=== PATIENT | male | born 1970 | race African-American/Black ===

== ENCOUNTER 2018-01-11 23:47 | Emergency (ER) | payer MEDICAID ==
[~2018-01-11] VITALS: Ht 172.7 cm; Wt 86.3 kg
[2018-01-12] MEDS ORDERED: KETOROLAC 60MG/2ML VIAL IM ONE (04:45)
[2018-01-12] MEDS ORDERED: PREDNISONE 20MG TABLET PO ONE (04:45)
[2018-01-12 06:25] VITALS: BP 132/91
== END 2018-01-12 06:59 | disposition home or self-care (01) ==
LOC: ER 23:47
DX: J02.8 Acute pharyngitis due to other specified organisms (principal); B97.89 Other viral agents as the cause of diseases classified elsewhere; F12.10 Cannabis abuse, uncomplicated; Z88.5 Allergy status to narcotic agent
CPT/HCPCS: 87070; 87430; 96372; 99284; J1885; J7512